=== PATIENT | female | born 1990 | race African-American/Black ===

== ENCOUNTER 2017-02-12 05:19 | Emergency (ER) | payer OTHER ==
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
[2017-02-12 05:37] VITALS: BMI 25.8
[2017-02-12] MEDS ORDERED: IBUPROFEN 600 MG TABLET (FP) PO ONE ×2 (06:02→06:47)
[2017-02-12 06:59] VITALS: BP 117/60; PULSE 80; TEMP 98
== END 2017-02-12 07:19 | disposition home or self-care (01) ==
LOC: JER 05:19
PROC: 0HQ1XZZ Repair Face Skin, External Approach (ICD-10-PCS; principal; 2017-02-12)
DX: S01.81XA Laceration without foreign body of other part of head, initial encounter (principal); Y00.XXXA Assault by blunt object, initial encounter; Y93.89 Activity, other specified; Y92.9 Unspecified place or not applicable
CPT/HCPCS: 12011-25; 99281-25

== ENCOUNTER 2017-02-14 14:39 | Emergency (ER) | payer OTHER ==
[2017-02-14 14:52] VITALS: BP 109/68; PULSE 63; TEMP 98.4; BMI 25.8
[2017-02-14] MEDS ORDERED: diphenhydrAMINE HCL 25 MG CAPSULE (FP) PO ONE ×2 (15:16→15:30)
[2017-02-14] MEDS ORDERED: ACETAMINOPHEN 325 MG TABLET (FP) PO ONE (15:16)
--- NOTE | 2017-02-14 15:22 | PDOC ---
Suture Removal/Wound Check HPI - History of Present Illness Chief Complaint: Revisit,Wound Recheck Stated Complaint: REVISIT Time Seen by Provider: 02/14/17 14:57 History Source: Yes: Patient Exam Limitations: Yes: No Limitations Treated at: [facility] Date of Last ED visit: 02/12/17 - Previous ED Treatment Type of procedure performed on last visit: Yes: Laceration Repair Past History - Past Medical History Allergies/Adverse Reactions: Allergies No Known Allergies Allergy (Verified 02/14/17 14:50) Home Medications: Ambulatory Orders NK [No Known Home Medication] 12/13/15 - Immunization History Immunizations Up to Date: Yes Tetanus Status: Less than 5 years - Social History Smoking History: No Smoking Status: Never smoked Number of Ciarettes Per Day: 0 Alcohol Use: none Drug Use: none Medical Decision Making - Medical Decision Making A/P: 26 y/o afebrile female here for wound check. She had sutures placed in forehead lac on 02/12. She denies redness, drainage or fevers. Pt asking for tylenol and benadryl for allergy symptoms. Will provide in the ER. Instructed her to return on Monday for suture removal. The patient verbalizes understanding of all instructions, has no further questions and is awaiting discharge. *DC/Admit/Observation/Transfer Diagnosis at time of Disposition: Visit for wound check - Discharge Dispostion Disposition: HOME Condition at time of disposition: Good - Referrals Referrals: Ad Lopez MD [Primary Care Provider] - - Patient Instructions Additional Instructions: Discharge Instructions: -Return to the ER in 3 days for suture removal
[2017-02-14] MEDS ORDERED: ACETAMINOPHEN 325 MG TABLET (FP) ONE (15:30)
== END 2017-02-14 15:33 | disposition home or self-care (01) ==
LOC: JERFT 14:39
DX: Z09 Encounter for follow-up examination after completed treatment for conditions other than malignant neoplasm (principal)
CPT/HCPCS: 99281-25

== ENCOUNTER 2017-02-17 14:36 | Emergency (ER) | payer OTHER ==
[2017-02-17 14:40] VITALS: BP 98/60; PULSE 67; TEMP 98.6; BMI 24.2
[2017-02-17] MEDS ORDERED: ACETAMINOPHEN 325 MG TABLET (FP) PO ONE (15:11)
[2017-02-17] MEDS ORDERED: ACETAMINOPHEN 325 MG TABLET (FP) ONE (15:12)
--- NOTE | 2017-02-17 15:15 | PDOC ---
Suture Removal/Wound Check HPI - History of Present Illness Chief Complaint: Suture/Staple Removal (other) Stated Complaint: SUTURE REMOVAL Time Seen by Provider: 02/17/17 14:51 History Source: Yes: Patient Exam Limitations: Yes: No Limitations Treated at: [facility] Date of Last ED visit: 02/12/17 - Previous ED Treatment Type of procedure performed on last visit: Yes: Laceration Repair Tetanus Immunization: Yes: Up to Date, Last Tetanus <5 years ago Past History - Past Medical History Allergies/Adverse Reactions: Allergies No Known Allergies Allergy (Verified 02/17/17 14:38) Home Medications: Ambulatory Orders NK [No Known Home Medication] 12/13/15 - Immunization History Immunizations Up to Date: Yes Tetanus Status: Less than 5 years - Social History Smoking History: No Smoking Status: Never smoked Number of Ciarettes Per Day: 0 Alcohol Use: none Drug Use: none Suture Removal/Wound Check PE - Physical Exam Laceration/Wound Check Symptoms: reports: Improved. denies: Pain, Fever, Chills , Redness, Discharge Current Severity Level: None Pain Localization: None Location of Laceration/Wound: right: Head (Vertical laceraction to forehead. Removed 4 simple interuppted sutures) Medical Decision Making - Medical Decision Making 02/17/17 19:41 Wound is well approximated and closed. Minimal scarring. 4 simple interrupted sutures removed. Pt. tolerated procedure well. Bacitracin placed on wound. Pt. to be discharged home at this time. Instructed pt. to use bacitracin on the wound and not to soak the wound for 2-3 weeks. Pt. verbalizes understanding of discharge instructions and has no questions at this time. *DC/Admit/Observation/Transfer Diagnosis at time of Disposition: Encounter for removal of sutures - Discharge Dispostion Disposition: HOME Condition at time of disposition: Stable Admit: No - Referrals Referrals: Amari Mckeon MD [Primary Care Provider] - - Patient Instructions Printed Discharge Instructions: DI for Suture Removal Additional Instructions: You had your stitches removed today. The wound is closed and healing well. You may get the area wet, but avoid soaking the head for another 2 weeks (swimming etc). Cover the area with bactracin to prevent infection. You may also use aquaphor to help with scarring. You can use tobin butter once the wound is completely healed in 2 weeks. If you see any signs of infection such as redness, increased swelling or drainage from the site or develop new fevers and chills, return to the ED.
== END 2017-02-17 15:23 | disposition home or self-care (01) ==
LOC: JERFT 14:36
DX: Z48.02 Encounter for removal of sutures (principal)
CPT/HCPCS: 99281-25

== ENCOUNTER 2017-09-30 09:59 | Emergency (ER) | payer OTHER ==
[2017-09-30 10:03] VITALS: BP 141/64; PULSE 85; TEMP 98.7; BMI 25.0
--- NOTE | 2017-09-30 10:54 | PDOC ---
History of Present Illness - General Chief Complaint: Chest Pain Stated Complaint: CHEST PAIN Time Seen by Provider: 09/30/17 10:50 History Source: Patient Exam Limitations: No Limitations - History of Present Illness Initial Comments: 09/30/17 11:28 My Chief Complaint:chest discomfort, left arm pain, headache History of present illness: Patient is a 26-year-old female with no significant medical history here today complaining of intermittent left chest wall pain and intermittent left arm pain mostly at night or in extension agent. Patient describes the pain as being sharp stabbing like with no shortness of breath. Patient reports that these symptoms have persisted for 2-1/2 weeks. Patient reports sleeping mostly on her left side. Patient reports having a bad cough around Thanksgiving that lasted for weeks. Patient denies any cough presently or any shortness of breath but does have some intermittent chest tightness. Patient also reports having headache left temporal area for 2 1/2 weeks, occipital headache since last night. Pt. denies any neck pain. Patient denies any nasal congestion, sore throat, cough, or any swelling in her legs. Patient denies any chance of is on a control patch. Patient denies any family history of sudden cardiac at young age. Timing/Duration: intermittent Severity: moderate Associated Symptoms: reports: chest pain (left chest wall ), headaches (left temporal for few weeks, occipital since last night), other (intermittent sharp pain left arm mostly at night/extension agent ) Past History - Past Medical History Allergies/Adverse Reactions: Allergies Allergy/AdvReac Type Severity Reaction Status Date / Time No Known Allergies Allergy Verified 09/30/17 10:03 Home Medications: Ambulatory Orders NK [No Known Home Medication] 12/13/15 Anemia: No Asthma: No Cancer: No Cardiac Disorders: No CVA: No COPD: No DVT: No Dementia: No Diabetes: No Dialysis: No GI Disorders: No Disorders: No HTN: No Hypercholesterolemia: No Kidney Stones: No Liver Disease: No Psychiatric Problems: No Seizures: No Thyroid Disease: No Lung CA: No - Surgical History Abdominal Surgery: No Appendectomy: No Cardiac Surgery: No Cholecystectomy: No Gastric Stapling: No GI Surgery: No Lung Surgery: No Neurologic Surgery: No - Reproductive History (#): 2 Para: 1 Therapeutic (s) & number: Yes (1) - Immunization History Immunization Up to Date: Yes - Suicide/Smoking/Psychosocial Hx Smoking Status: No Smoking History: Never smoked Have you smoked in the past 12 months: No Number of Cigarettes Smoked Daily: 0 Hx Alcohol Use: Yes (SOCIAL) Drug/Substance Use Hx: No Substance Use Type: None Review of Systems - Review of Systems Able to Perform ROS?: Yes Constitutional: No: Symptoms Reported HEENTM: No: Symptoms Reported Respiratory: No: Symptoms reported Cardiac (ROS): Yes: Chest Pain, Chest Tightness (intermittentlyh ). No: Irregular Heart Rate, Lightheadedness, Palpitations, Syncope ABD/GI: No: Symptoms Reported : No: Symptoms Reported Musculoskeletal: Yes: Other (intermittent pain left arm sharp mostly at night or extension agent lies on this side) Integumentary: No: Symptoms Reported Neurological: No: Symptoms reported *Physical Exam - Vital Signs Last Vital Signs Temp Pulse Resp BP Pulse Ox 98.7 F 85 20 141/64 100 09/30/17 10:00 09/30/17 10:00 09/30/17 10:00 09/30/17 10:00 09/30/17 10:00 - Physical Exam General Appearance: Yes: Appropriately Dressed HEENT: positive: EOMI, ANJUM, Normal ENT Inspection Neck: negative: Lymphadenopathy (R), Lymphadenopathy (L) Respiratory/Chest: positive: Chest Tender (left chest wall tenderness ), Lungs Clear, Normal Breath Sounds, Respiratory Distress Cardiovascular: positive: Regular Rhythm, Regular Rate, S1, S2 Integumentary: positive: Normal Color Neurologic: positive: freight associate II-XII NML intact, Alert, Normal Response, Respond to painful stimul, Responsive. negative: Numbness, Sensory Deficit Heart Score/ECG Review - ST and T Comment:: 09/30/17 11:27 reviewed by Medical Decision Making - Medical Decision Making 09/30/17 11:27 Patient is a 26-year-old female with no significant medical history here today complaining of intermittent left chest wall pain and intermittent left arm pain mostly at night or in extension agent. Patient describes the pain as being sharp stabbing like with no shortness of breath. Patient reports that these symptoms have persisted for 2-1/2 weeks. Patient reports sleeping mostly on her left side. Patient reports having a bad cough around Thanksgiving that lasted for weeks. Patient denies any cough presently or any shortness of breath but does have some intermittent chest tightness. Patient also reports having headache left temporal area for 2 1/2 weeks, occipital headache since last night. Pt. denies any neck pain. Patient denies any nasal congestion, sore throat, cough, or any swelling in her legs. Patient denies any chance of is on a control patch. Patient denies any family history of sudden cardiac at young age. chest wall atyplcal pain left sided, left arm pain intermittent PLAN: EKG reviewed by MD WOODY xray chest PA/lateral negative for infiltrate per Dr. Carlton ibuprofen 600 mg po now 09/30/17 11:35 09/30/17 12:39 *DC/Admit/Observation/Transfer Diagnosis at time of Disposition: Chest wall pain, Arm pain, left Headache Qualifiers: Headache type: unspecified Headache chronicity pattern: unspecified pattern Intractability: not intractable Qualified Code(s): R51 - Headache - Discharge Dispostion Disposition: HOME Condition at time of disposition: Stable - Referrals - Patient Instructions Additional Instructions: Take ibuprofen as needed as directed by banquet line cook for pain Follow-up with your primary care provider for further evaluation Follow-up with your dentist as soon as possible Return to emergency room if symptoms worsen or new symptoms develop any difficulty breathing or worsening pain Patient voiced understanding of discharge instructions and all questions were answered - Post Discharge Activity
[2017-09-30] MEDS ORDERED: IBUPROFEN 600 MG TABLET (FP) PO ONE ×2 (11:17→11:20)
--- NOTE | 2017-10-03 01:43 | EKG ---
Test Reason : Blood Pressure : / mmHG Vent. Rate : 067 BPM Atrial Rate : 067 BPM P-R Int : 146 ms QRS Dur : 080 ms QT Int : 362 ms P-R-T Axes : -07 055 046 degrees QTc Int : 382 ms NORMAL SINUS RHYTHM WITH SINUS ARRHYTHMIA NORMAL ECG NO PREVIOUS ECGS AVAILABLE Confirmed by AMADEO JONES MD ([id number]) on 10/03/2017 1:43:27 AM Referred By: Confirmed By:AMADEO JONES MD
== END 2017-09-30 12:50 | disposition home or self-care (01) ==
LOC: JERFT 09:59
DX: R07.89 Other chest pain (principal); R51 Headache
CPT/HCPCS: 71020-TC; 93005; 93010; 99281-25

== ENCOUNTER 2018-07-16 23:39 | Emergency (ER) | payer OTHER ==
--- NOTE | 2018-07-17 01:45 | PDOC ---
History of Present Illness <Iveth Sharp - Last Filed: 07/17/18 03:14> - History of Present Illness Initial Comments: 07/17/18 01:45 27 yo F with no significant pmh who p/w right sided lateral chest wall pain. Patient reports acute onset of right sided lateral rib pain. Pain onset following standing up from chair. Now with dull, achy, pleuritic, spasmodic right sided rib pain, worse with rotational movement, pressure, and lifting objects. Patient denies straining, repetitive movements, or heavy lifting this week. Denies trauma to right side. Patient states that she took a hot shower with improvement in pain, but gradual recurrence of pain afterwards. Denies OTC analgesia. Denies h/o similar symptoms. Patient denies perianal parasthesia, urinary retention, N/V, F,C, cough, wheezing, palpitations, CP, SOB, urinary complaints, abdominal pain, diarrhea, constipation,BPR, hematuria, lightheadedness, weakness, sensory changes. PMHx: as noted above ROS: as noted SHx: Denies tobacco use, IVDA, Etoh. Allergies: NKDA <Contreras Ellsworth - Last Filed: 07/17/18 03:17> - General Stated Complaint: BACK PAIN Time Seen by Provider: 07/17/18 01:44 Past History <Iveth Sharp - Last Filed: 07/17/18 03:14> - Past Medical History Anemia: No Asthma: No Cancer: No Cardiac Disorders: No CVA: No COPD: No DVT: No Dementia: No Diabetes: No Dialysis: No GI Disorders: No Disorders: No HTN: No Hypercholesterolemia: No Kidney Stones: No Liver Disease: No Psychiatric Problems: No Seizures: No Thyroid Disease: No Lung CA: No - Surgical History Abdominal Surgery: No Appendectomy: No Cardiac Surgery: No Cholecystectomy: No Gastric Stapling: No GI Surgery: No Lung Surgery: No Neurologic Surgery: No - Reproductive History (#): 2 Para: 1 Therapeutic (s) & number: Yes (1) - Immunization History Immunization Up to Date: Yes - Suicide/Smoking/Psychosocial Hx Smoking Status: No Smoking History: Never smoked Have you smoked in the past 12 months: No Number of Cigarettes Smoked Daily: 0 Hx Alcohol Use: Yes (SOCIAL) Drug/Substance Use Hx: No Substance Use Type: None <Contreras Ellsworth - Last Filed: 07/17/18 03:17> - Past Medical History Allergies/Adverse Reactions: Allergies Allergy/AdvReac Type Severity Reaction Status Date / Time No Known Allergies Allergy Verified 07/17/18 02:22 Home Medications: Ambulatory Orders Cephalexin Monohydrate [Keflex -] 500 mg PO BID #14 capsule 07/17/18 Ibuprofen [Motrin -] 600 mg PO TID PRN #21 tablet 07/17/18 Methocarbamol [Robaxin -] 500 mg PO BID PRN #14 tablet 07/17/18 Review of Systems - Review of Systems Comments:: 07/17/18 01:45 GENERAL/CONSTITUTIONAL: No fever or chills. No weakness. HEAD, EYES, EARS, NOSE AND THROAT: No change in vision. No ear pain or discharge. No sore throat. CARDIOVASCULAR: No chest pain or shortness of breath RESPIRATORY: No cough, wheezing, or hemoptysis. GASTROINTESTINAL: No nausea, vomiting, diarrhea or constipation. GENITOURINARY: No dysuria, frequency, or change in urination. MUSCULOSKELETAL: + Right sided chest wall/rib pain. No neck or back pain. SKIN: No rash NEUROLOGIC: No headache, vertigo, loss of consciousness, or change in strength/ sensation. ENDOCRINE: No increased thirst. No abnormal weight change HEMATOLOGIC/LYMPHATIC: No anemia, easy bleeding, or history of blood clots. ALLERGIC/IMMUNOLOGIC: No hives or skin allergy. <Contreras Ellsworth - Last Filed: 07/17/18 03:17> *Physical Exam - Vital Signs Last Vital Signs Temp Pulse Resp BP Pulse Ox 98.8 F 67 19 119/70 98 07/17/18 00:00 07/17/18 00:00 07/17/18 00:00 07/17/18 00:00 07/17/18 00:00 <Iveth Sharp - Last Filed: 07/17/18 03:14> - Physical Exam Comments: 07/17/18 01:45 GENERAL: Awake, alert, and fully oriented, in no acute distress HEAD: No signs of trauma, normocephalic, atraumatic EYES: PERRLA, EOMI, sclera anicteric, conjunctiva clear ENT: Hearing grossly normal, nares patent, oropharynx clear without exudates. Moist mucosa NECK: Normal ROM, supple, no lymphadenopathy, JVD, or masses CHEST: + Right sided rib/chest wall ttp. No obvious bony deformity, or overlying skin change. BACK: Absent midline C,T,L ttp. LUNGS: No distress, speaks full sentences, clear to auscultation bilaterally HEART: Regular rate and rhythm, normal S1 and S2, no murmurs, rubs or gallops, peripheral pulses normal and equal bilaterally. ABDOMEN: Soft, nontender, normoactive bowel sounds. No guarding, no rebound. No masses. Neg CVA ttp. EXTREMITIES : Normal inspection, Normal range of motion, no edema. No clubbing or cyanosis. SKIN: Warm, Dry, normal turgor, no rashes or lesions noted <Contreras Ellsworth - Last Filed: 07/17/18 03:17> ED Treatment Course - ADDITIONAL ORDERS Additional order review: Laboratory Results 07/17/18 02:05 Urine Color Yellow Urine Appearance Cloudy Urine pH 5.0 Ur Specific Easley 1.027 Urine Protein Negative Urine Glucose (UA) Negative Urine Ketones Negative Urine Blood Negative Urine Nitrite Negative Urine Bilirubin Negative Urine Urobilinogen Negative Ur Leukocyte Esterase 3+ H Urine WBC (Auto) 56 Urine RBC (Auto) 7 Ur Epithelial Cells Many Urine Bacteria Few Urine Mucus Moderate Urine HCG, Qual Negative - Medications Given in the ED: ED Medications Discontinued Medications Generic Name Dose Route Start Last Admin Trade Name Freq PRN Reason Stop Dose Admin Baclofen 10 mg 07/17/18 02:01 07/17/18 02:33 Lioresal - PO 07/17/18 02:02 10 mg ONCE ONE Administration Naproxen 500 mg 07/17/18 02:01 07/17/18 02:33 Naprosyn - PO 07/17/18 02:02 500 mg ONCE ONE Administration <Iveth Sharp - Last Filed: 07/17/18 03:14> Medical Decision Making - Medical Decision Making 07/17/18 01:55 27 yo F with no significant pmh who p/w right sided lateral chest wall pain. VSS , AF. Pain reproducible with touch to right sided rib cage. Low suspicion pyelonephritis, nephorlithiiais, or abdominal pathology ( biliary disease, pancreatitis, gastritis,appendicitis). Patient with absent alarm findings. Low suspicion cauda equina, or epidural abscess. Absent midline ttp. Low suspicion spinal herniation/fracture. Pain likely MSK in etiology. Sprain vs. Strain. No evidence of rib fracture. Ed Course: UA, Urine preg 07/17/18 02:02 Baclofen, Naproxen 07/17/18 03:17 UA: 3+ Leuk ESt, 56 WBC. Keflex sent to pharmacy for UTI Patient stable for d/c with return precautions. Advised to f/u with PMD. <Contreras Ellsworth - Last Filed: 07/17/18 03:17> *DC/Admit/Observation/Transfer - Discharge Dispostion Decision to Admit order: No <Iveth Sharp - Last Filed: 07/17/18 03:14> - Discharge Dispostion Decision to Admit order: No - Attestations Physician Attestion: 07/17/18 02:03 I attest to the information provided in this note. <Contreras Ellsworth - Last Filed: 07/17/18 03:17> Diagnosis at time of Disposition: Rib pain on right side - Discharge Dispostion Disposition: HOME Condition at time of disposition: Stable - Prescriptions Prescriptions: Cephalexin Monohydrate [Keflex -] 500 mg PO BID #14 capsule Ibuprofen [Motrin -] 600 mg PO TID PRN #21 tablet PRN Reason: Pain Methocarbamol [Robaxin -] 500 mg PO BID PRN #14 tablet PRN Reason: Muscle Spasms - Referrals Referrals: Sadi Bray MD [Primary Care Provider] - - Patient Instructions Printed Discharge Instructions: DI for Urinary Tract Infection (UTI), DI for Thoracic Back Pain Additional Instructions: Please return to the emergency department with any new or worsening symptoms or concerns. Please follow up with your primary care physician within 72 hours. - Post Discharge Activity
[2018-07-17] MEDS ORDERED: BACLOFEN 10 MG TABLET (FP) PO ONE (02:01)
[2018-07-17] MEDS ORDERED: NAPROXEN 500 MG TABLET (FP) PO ONE (02:01)
--- NOTE | 2018-07-17 02:01 | PDOC ---
Attending Attestation - Resident Resident Name: Contreras Ellsworth - ED Attending Attestation I have performed the following: I have examined & evaluated the patient, The case was reviewed & discussed with the resident, I agree w/resident's findings & plan, Exceptions are as noted
[2018-07-17 02:22] VITALS: TEMP 98.8; BMI 25.8
[2018-07-17] MEDS ORDERED: NAPROXEN 500 MG TABLET (FP) ONE (02:23)
[2018-07-17] MEDS ORDERED: BACLOFEN 10 MG TABLET (FP) ONE (02:24)
[2018-07-17 02:42] LABS: URINE APPEARANCE CLOUDY; URINE BILIRUBIN NEGATIVE (<2.0 mg/dL); URINE COLOR YELLOW; URINE GLUCOSE (UA) NEGATIVE (NEGATIVE); URINE KETONE NEGATIVE (NEGATIVE); URINE NITRITE NEGATIVE (NEGATIVE); URINE PROTEIN NEGATIVE (NEGATIVE); URINE UROBILINOGEN NEGATIVE mg/dL (0.2-1.0)
[2018-07-17 02:44] LABS: HCG,QUALITATIVE URINE Negative
[2018-07-17 02:47] LABS: URINE LEUK ESTERASE 3+ (NEGATIVE)
[2018-07-17 02:49] LABS: EPI CELLS MANY /HPF (FEW); URINE BACTERIA FEW /hpf (NONE SEEN); URINE MUCUS MODERATE
[2018-07-17] MEDS ORDERED: CEPHALEXIN MONOHYDRATE 500 MG CAPSULE (UD) PO ONE (03:11)
[2018-07-17] MEDS ORDERED: CEPHALEXIN MONOHYDRATE 500 MG CAPSULE (UD) ONE (03:18)
[2018-07-17 03:21] VITALS: BP 122/78; PULSE 71
== END 2018-07-17 03:21 | disposition home or self-care (01) ==
LOC: JER 23:39
DX: M62.838 Other muscle spasm (principal); R07.81 Pleurodynia; N39.0 Urinary tract infection, site not specified
CPT/HCPCS: 81003; 81015; 84703; 99282-25; J0475

== ENCOUNTER 2019-06-13 22:07 | Emergency (ER) | payer OTHER ==
[2019-06-13 22:14] VITALS: BMI 24.2
--- NOTE | 2019-06-13 23:02 | PDOC ---
History of Present Illness - General Chief Complaint: Diarrhea Stated Complaint: BLOODY STOOL Time Seen by Provider: 06/13/19 22:36 - History of Present Illness Initial Comments: Ms. Frye is a 28 y/o female with no significant PMH presenting today with diarrhea since Monday and 1 episode of bloody diarrhea 30 min [employer]. Reports that she has been having around 5 episodes of diarrhea and loose stools each day since Monday. Reports that today she had one episode of bloody diarrhea which prompted her to come to the ED. Reports that the blood was bright red and in the toilet, in the stool, and on the toilet paper. Reports periumbilical abdominal pain that she describes as cramping. Reports that pain is worse prior to needing to have a bowel movement but not associated with eating. Denies fever, chills, nausea/vomiting. Reports usual appetite. Denies melena. Denies dysuria or hematuria/hematemesis. Denies cough. PMH: none SurgHx: 2006. no other abdominal surgeries. Meds: none SocHx: no recent travel. Reports eating out more at [employer] recently. social ETOH use. Past History - Past Medical History Allergies/Adverse Reactions: Allergies Allergy/AdvReac Type Severity Reaction Status Date / Time No Known Allergies Allergy Verified 06/13/19 22:10 Home Medications: Ambulatory Orders Ibuprofen [Motrin -] 600 mg PO TID PRN #21 tablet 07/17/18 Anemia: No Asthma: No Cancer: No Cardiac Disorders: No CVA: No COPD: No DVT: No Dementia: No Diabetes: No Dialysis: No GI Disorders: No Disorders: No HTN: No Hypercholesterolemia: No Kidney Stones: No Liver Disease: No Psychiatric Problems: No Seizures: No Thyroid Disease: No Lung CA: No - Surgical History Abdominal Surgery: No Appendectomy: No Cardiac Surgery: No Cholecystectomy: No Gastric Stapling: No GI Surgery: No Lung Surgery: No Neurologic Surgery: No - Reproductive History (#): 2 Para: 1 Therapeutic (s) & number: Yes (1) - Immunization History Immunization Up to Date: Yes - Suicide/Smoking/Psychosocial Hx Smoking Status: No Smoking History: Never smoked Have you smoked in the past 12 months: No Number of Cigarettes Smoked Daily: 0 Hx Alcohol Use: Yes (SOCIAL) Drug/Substance Use Hx: Yes (MARIJUANA) Substance Use Type: None Review of Systems - Review of Systems Comments:: GENERAL/CONSTITUTIONAL: No fever or chills. No weakness. HEAD, EYES, EARS, NOSE AND THROAT: No change in vision. No change in hearing. No sore throat._ CARDIOVASCULAR: No chest pain or shortness of breath_ RESPIRATORY: Denies cough, hemoptysis_ GASTROINTESTINAL: Reports abdominal pain. Reports nausea without vomiting. Reports diarrhea. Reports blood in stool. GENITOURINARY: No dysuria, frequency, or change in urination._ MUSCULOSKELETAL: No joint or muscle swelling or pain. No neck or back pain._ SKIN: No rash_ NEUROLOGIC: No headache, vertigo, loss of consciousness, or change in strength/ sensation._ ENDOCRINE: No increased thirst. No abnormal weight change_ HEMATOLOGIC/LYMPHATIC: No anemia, easy bleeding, or history of blood clots._ ALLERGIC/IMMUNOLOGIC: No hives or skin allergy._ *Physical Exam - Vital Signs Last Vital Signs Temp Pulse Resp BP Pulse Ox 98.5 F 86 16 106/66 97 06/13/19 22:10 06/13/19 22:10 06/13/19 22:10 06/13/19 22:10 06/13/19 22:10 - Physical Exam Comments: GENERAL: Awake, alert, and oriented to person/place/time, in no acute distress_ HEAD: No signs of trauma, normocephalic, atraumatic _ EYES: PERRLA, EOMI, sclera anicteric, conjunctiva clear_ ENT: Hearing grossly normal, nares patent, oropharynx clear without exudates. No uvular deviation. Moist mucosa_ NECK: Normal ROM, supple, no lymphadenopathy, JVD, or masses_ LUNGS: No distress, speaks in full sentences, clear to auscultation bilaterally _ HEART: Regular rate and rhythm, normal S1 and S2, no murmurs appreciated, peripheral pulses normal and equal bilaterally._ ABDOMEN: Soft, TTP periumbilical without guarding or rebound, normoactive bowel sounds. No masses_ RECTAL: Rectal vault empty. Normal sphincter tone. No [place] blood visualized. EXTREMITIES: Normal inspection, Normal range of motion, no edema. No clubbing or cyanosis_ NEUROLOGICAL: Cranial nerves II through XII grossly intact. Normal speech, normal gait, no focal sensorimotor deficits _ SKIN: Warm, Dry, normal turgor, no rashes or lesions noted_ ED Treatment Course - LABORATORY CBC & Chemistry Diagram: 06/13/19 23:15 06/13/19 23:15 Medical Decision Making - Medical Decision Making 28F with no PMH presenting with 3 days of diarrhea and 1 episode of blood in diarrhea prior to arrival. No dizziness, no palpitations, no shortness of breath. Obtain CBC, CMP, lipase, fecal occult test. 06/14/19 01:27 Labs reviewed. Hgb/Hct stable and wnl. Afebrile. WBC wnl. Given that she is well appearing and there is no bright red blood per rectum, plan to d/c home and f/u PCP (Dr. Bray). *DC/Admit/Observation/Transfer Diagnosis at time of Disposition: Diarrhea Qualifiers: Diarrhea type: unspecified type Qualified Code(s): R19.7 - Diarrhea, unspecified - Discharge Dispostion Disposition: HOME Condition at time of disposition: Stable Decision to Admit order: No - Referrals Referrals: Sadi Bray MD [Primary Care Provider] - - Patient Instructions Additional Instructions: Please avoid the foods that you have noticed are associated with your diarrhea. Please make an appointment to follow up with your PCP Dr. Bray in the next week. If you experience any new, worsening, or concerning symptoms, including fever, nausea/vomiting, blood in the vomit, bleeding from the rectum, dizziness, headache, chest pain, shortness of breath, or any other concerns, please return to the emergency department. - Post Discharge Activity
[2019-06-13] MEDS ORDERED: ONDANSETRON 4 MG/2 ML VIAL IVPB ONE (23:05)
[2019-06-13] MEDS ORDERED: MAG HYDROX/AL HYDROX/SIMETH 30 ML UNIT-DOSE CUP PO ONE (23:05)
[2019-06-13] MEDS ORDERED: SODIUM CHLORIDE 1,000 ML IV STA (23:05)
[2019-06-13] MEDS ORDERED: FAMOTIDINE 20 MG/50 ML IVPB 20 MG/50 ML MG IVPB ONE ×2 (23:05→23:12)
[2019-06-13] MEDS ORDERED: ONDANSETRON 4 MG/2 ML VIAL ONE (23:12)
[2019-06-13] MEDS ORDERED: MAG HYDROX/AL HYDROX/SIMETH 30 ML UNIT-DOSE CUP ONE (23:12)
[2019-06-13 23:36] LABS: BASO % 0.6 % (0-2.0); EOS % 5.6 % (0-4.5); HEMATOCRIT 37.1 % (32.4-45.2); HEMOGLOBIN 11.8 GM/dL (10.7-15.3); LYMPH % 33.7 % (8-40); MCH 27.7 pg (25.7-33.7); MCHC 31.9 g/dl (32.0-36.0); MEAN CELL VOLUME 86.9 fl (80-96); MEAN PLT VOLUME 8.4 fl (7.5-11.1); MONO % 14.7 % (3.8-10.2); NEUT % 45.4 % (42.8-82.8); PLATELET COUNT 323 K/MM3 (134-434); RBC 4.27 M/mm3 (3.60-5.2); WHITE BLOOD COUNT 4.5 K/mm3 (4.0-10.0)
--- NOTE | 2019-06-13 23:49 | PDOC ---
Documentation entered by Cricket Pennington SCRIBE, acting as scribe for Frederick Baig MD. Frederick Baig MD: This documentation has been prepared by the Gorge escobar Xhesika, SCRIBE, under my direction and personally reviewed by me in its entirety. I confirm that the documentation accurately reflects all work, treatment, procedures, and medical decision making performed by me. Attending Attestation - Resident Resident Name: Vikas Galvez - ED Attending Attestation I have performed the following: I have examined & evaluated the patient, The case was reviewed & discussed with the resident, I agree w/resident's findings & plan, Exceptions are as noted - HPI HPI: 06/13/19 23:17 The patient is a 28 year old female with no significant PMH of who presents to the emergency department for 4 days of diarrhea and 1 episode of bright red blood in stool 30min prior to arrival. Patient states she has been endorsing diffuse, crampy abdominal pain associated with nausea. Patient notes she ate Sushi late last week. Patient notes she took Motrin with mild relief of symptoms. The patient denies chest pain, shortness of breath, headache and dizziness. Denies fever, chills, cough, vomiting, and constipation. Denies dysuria, frequency, urgency. Allergies: NKDA PCP: Dr. Sadi Bray - Physicial Exam PE: 06/14/19 01:25 Agree with exam as documented by resident - Medical Decision Making 06/14/19 01:30 CC of diarrhea with one episode painless rectal blood with diarrhea Afebrile, VS wnl Likely AGE No further bleeding, diarrhea tolerating PO w/o issue maintain hydration f/u pcp
[2019-06-14 00:11] LABS: ALBUMIN 3.2 g/dl (3.4-5.0); BILIRUBIN,TOTAL 0.2 mg/dL (0.2-1); BLOOD UREA NITROGEN 14.1 mg/dL (7-18); CALCIUM 8.8 mg/dL (8.5-10.1); CREATININE 0.9 mg/dL (0.55-1.3); POTASSIUM 3.7 mmol/L (3.5-5.1); TOT PROT 6.9 g/dl (6.4-8.2)
[2019-06-14] MEDS ORDERED: ACETAMINOPHEN 325 MG TABLET (FP) PO ONE (01:30)
[2019-06-14 01:42] VITALS: BP 132/70; PULSE 76; TEMP 97.6
== END 2019-06-14 01:42 | disposition home or self-care (01) ==
LOC: JER 22:07
PROC: 3E033GC Introduction of Other Therapeutic Substance into Peripheral Vein, Percutaneous Approach (ICD-10-PCS; principal; 2019-06-13)
PROC: 3E033GC Introduction of Other Therapeutic Substance into Peripheral Vein, Percutaneous Approach (ICD-10-PCS; 2019-06-13)
DX: R19.7 Diarrhea, unspecified (principal)
CPT/HCPCS: 36415; 80053; 82272; 83690; 85025; 99283-25; J7030

== ENCOUNTER 2019-12-26 08:42 | Emergency (ER) | payer OTHER ==
[2019-12-26 08:47] VITALS: BP 116/65; PULSE 78; TEMP 98.2; BMI 24.7
--- NOTE | 2019-12-26 09:04 | PDOC ---
History of Present Illness - General Chief Complaint: Cold Symptoms Stated Complaint: Evaluation Time Seen by Provider: 12/26/19 08:51 History Source: Patient Exam Limitations: No Limitations Past History - Past Medical History Allergies/Adverse Reactions: Allergies Allergy/AdvReac Type Severity Reaction Status Date / Time No Known Allergies Allergy Verified 12/26/19 08:47 Home Medications: Ambulatory Orders Ibuprofen [Motrin -] 600 mg PO TID PRN #21 tablet 07/17/18 Anemia: No Asthma: No Cancer: No Cardiac Disorders: No CVA: No COPD: No DVT: No Dementia: No Diabetes: No Dialysis: No GI Disorders: No Disorders: No HTN: No Hypercholesterolemia: No Kidney Stones: No Liver Disease: No Psychiatric Problems: No Seizures: No Thyroid Disease: No Lung CA: No - Surgical History Abdominal Surgery: No Appendectomy: No Cardiac Surgery: No Cholecystectomy: No Gastric Stapling: No GI Surgery: No Lung Surgery: No Neurologic Surgery: No - Reproductive History (#): 2 Para: 1 Therapeutic (s) & number: Yes (1) - Immunization History Immunization Up to Date: Yes - Psycho Social/Smoking Cessation Hx Smoking Status: No Smoking History: Never smoked Have you smoked in the past 12 months: No Number of Cigarettes Smoked Daily: 0 Information on smoking cessation initiated: No Hx Alcohol Use: No Drug/Substance Use Hx: No Substance Use Type: None *Physical Exam - Vital Signs Last Vital Signs Temp Pulse Resp BP Pulse Ox 98.2 F 78 19 116/65 100 12/26/19 08:45 12/26/19 08:45 12/26/19 08:45 12/26/19 08:45 12/26/19 08:45 - Physical Exam General Appearance: No: Apparent Distress HEENT: negative: Nasal Congestion, Rhinorrhea Respiratory/Chest: positive: Lungs Clear, Normal Breath Sounds. negative: Respiratory Distress Cardiovascular: positive: Regular Rhythm, Regular Rate, S1, S2. negative: Murmur Integumentary: positive: Normal Color Neurologic: positive: Alert Medical Decision Making - Medical Decision Making 28-year-old female with no significant past medical history presents with concern for possible coronavirus. Mentions that her boyfriend was in the court house of a fretted string instrument repairer who was tested positive for coronavirus but he was nowhere near the fretted string instrument repairer. However her job wanted her to get tested as the patient was near her boyfriend. Patient states her boyfriend does not have any URI symptoms. Denies fevers, cough, shortness of breath, abdominal pain, nausea, vomiting, diarrhea, recent travel, sick contacts. Patient without any URI symptoms Unlikely with coronavirus Patient reassured 12/26/19 09:00 Discharge - Discharge Information Problems reviewed: Yes Clinical Impression/Diagnosis: Evaluation by medical service required Condition: Stable Disposition: HOME - Admission No - Additional Discharge Information Prescription Drug Monitoring Program (I-STOP) results: I-STOP not reviewed - Follow up/Referral Referrals: Sadi Bray MD [Primary Care Provider] - - Patient Discharge Instructions Additional Instructions: Thank you for choosing [facility]. It was a pleasure taking care of you. Currently you do not have any signs or symptoms of the coronavirus If you any questions or concerns, you may contact [facility] of health at [phone] or [phone] Return to the Emergency Department for any other concerning symptoms. - Post Discharge Activity
== END 2019-12-26 09:12 | disposition home or self-care (01) ==
LOC: JERFT 08:42
DX: Z03.818 Encounter for observation for suspected exposure to other biological agents ruled out (principal)
CPT/HCPCS: 99282-25

== ENCOUNTER 2024-07-10 13:17 | Emergency (ER) | payer BC, OTHER ==
[2024-07-10 13:25] VITALS: BP 112/70; PULSE 79; RESP 18; TEMP 99.5; BMI 25.8
== END 2024-07-10 16:03 | disposition home or self-care (01) ==
LOC: JERFT 13:17
DX: R09.81 Nasal congestion (principal); J34.89 Other specified disorders of nose and nasal sinuses; J06.9 Acute upper respiratory infection, unspecified; Z20.822 Contact with and (suspected) exposure to COVID-19
CPT/HCPCS: 0241U-QW; 99283-25

== ENCOUNTER 2025-08-10 10:17 | Emergency (ER) | payer OTHER ==
[2025-08-10 10:30] VITALS: BP 116/75; PULSE 66; RESP 18; TEMP 98.2; BMI 26.3
[2025-08-10 12:56] LABS: URINE APPEARANCE CLEAR; URINE BILIRUBIN NEGATIVE (NEGATIVE); URINE COLOR YELLOW; URINE GLUCOSE (UA) NEGATIVE (NEGATIVE); URINE KETONE NEGATIVE (NEGATIVE); URINE LEUK ESTERASE NEGATIVE (NEGATIVE); URINE NITRITE NEGATIVE (NEGATIVE); URINE PROTEIN NEGATIVE (NEGATIVE); URINE UROBILINOGEN 0.2 mg/dL (0.2-1.0)
[2025-08-10 12:59] LABS: HCG,QUALITATIVE URINE Negative
== END 2025-08-10 13:29 | disposition home or self-care (01) ==
LOC: JER 10:17
DX: R60.0 Localized edema (principal); R20.2 Paresthesia of skin; I83.892 Varicose veins of left lower extremity with other complications
CPT/HCPCS: 81003; 84703; 87086; 93970-TC; 99284-25